=== PATIENT | female | born 1980 | race Caucasian/White ===

== ENCOUNTER 2016-11-20 21:30 | Emergency (ER) | payer MEDICAID ==
[~2016-11-20] VITALS: Ht 167.6 cm; Wt 138.2 kg
[~2016-11-20 21:30] MED LIST: IBUP-1222 PO; LIRA0.6P SQ; MELO-190 PO; METF500T4 PO; OXYC-302 PO
[2016-11-20] MEDS ORDERED: METF500T27 PO (23:02)
[2016-11-20 23:51] VITALS: BP 104/57
== END 2016-11-20 23:53 | disposition home or self-care (01) ==
LOC: ED 23:37
DX: N30.00 Acute cystitis without hematuria (principal)
CPT/HCPCS: 81001; 87077; 87086; 87186; 99284

== ENCOUNTER 2016-12-22 05:53 | Emergency (ER) | payer MEDICAID ==
[~2016-12-22] VITALS: Ht 167.6 cm; Wt 135.6 kg
[~2016-12-22 05:53] MED LIST changes: +METF500T27 PO
[2016-12-22] MEDS ORDERED: SODIUM CHLORIDE 0.9% 1,000 ML IV ONE (06:15)
[2016-12-22] MEDS ORDERED: MORPHINE SULFATE 4 MG/ML, 1ML ONE ×2 (06:23→07:59)
[2016-12-22] MEDS ORDERED: ONDANSETRON 2MG/ML, 2ML ONE (06:24)
[2016-12-22] MEDS ORDERED: ONDANSETRON 2MG/ML, 2ML IVPush ONE (06:30)
[2016-12-22] MEDS ORDERED: SODIUM CHLORIDE FLUSH 10ML SYR IVF ONE (06:30)
[2016-12-22] MEDS: MORPHINE SULFATE 4 MG/ML, 1ML IVPush PRN ×2 (06:41→08:11)
[2016-12-22 07:10] LABS: ASPARTATE AMINO TRANSFERASE 15 U/L (15-37); BLOOD UREA NITROGEN 18 mg/dL (7-18)
[2016-12-22 08:03] VITALS: BP 112/65
[2016-12-22] MEDS ORDERED: KETOROLAC 30 MG/1 ML ONE (08:48)
[2016-12-22] MEDS ORDERED: KETOROLAC 30 MG/1 ML IVPush ONE (09:00)
== END 2016-12-22 09:51 | disposition home or self-care (01) ==
LOC: ED 07:11
DX: N10 Acute pyelonephritis (principal)
CPT/HCPCS: 36415; 51701; 74176; 76700; 80053; 81001; 83690; 84703; 85025; 85610; 87077; 87086; 96361; 96374; 96375; 96376; 99285; J1885; J2405; J7030; 87186; P9612

== ENCOUNTER 2017-01-21 20:23 | Emergency (ER) | payer MEDICAID ==
[~2017-01-21] VITALS: Ht 167.6 cm; Wt 135.0 kg
[2017-01-21] MEDS ORDERED: IBUPROFEN 200 MG TABLET ONE (21:28)
[2017-01-21] MEDS ORDERED: IBUPROFEN 200 MG TABLET PO ONE (21:30)
[2017-01-21 22:39] VITALS: BP 139/78
== END 2017-01-21 22:41 | disposition home or self-care (01) ==
LOC: ED 22:13
DX: S90.01XA Contusion of right ankle, initial encounter (principal); S90.31XA Contusion of right foot, initial encounter; E11.9 Type 2 diabetes mellitus without complications; W19.XXXA Unspecified fall, initial encounter; Y93.89 Activity, other specified; Y92.009 Unspecified place in unspecified non-institutional (private) residence as the place of occurrence of the external cause; Y99.9 Unspecified external cause status
CPT/HCPCS: 99284

== ENCOUNTER 2018-06-06 21:03 | Emergency (ER) | payer MEDICAID ==
[~2018-06-06] VITALS: Ht 167.6 cm; Wt 107.1 kg
[~2018-06-06 21:03] MED LIST changes: -MELO-190 PO; +MELO7.5T31 PO; +METF500T17 PO; -METF500T4 PO
[2018-06-06 21:16] VITALS: BP 122/81
[2018-06-06 22:43] LABS: HCG UR SG 1.026 (1.003-1.030); MICROSCOPIC AUTO
[2018-06-06 23:01] LABS: CULTURE INDICATED? NO
[2018-06-06 23:13] LABS: CLUE CELLS NONE SEEN (NONE SEEN); WET PREP WBCS MODERATE (FEW)
[2018-06-06] MEDS ORDERED: AZITHROMYCIN 250 MG TABLET PO ONE (23:30)
[2018-06-06] MEDS ORDERED: CEFTRIAXONE 250 MG IM ONE (23:30)
[2018-06-07] MEDS ORDERED: AZITHROMYCIN 250 MG TABLET ONE (00:09)
[2018-06-07] MEDS ORDERED: CEFTRIAXONE 250 MG ONE (00:09)
== END 2018-06-07 00:28 | disposition home or self-care (01) ==
LOC: ED 21:28
DX: B34.9 Viral infection, unspecified (principal); H10.023 Other mucopurulent conjunctivitis, bilateral; H10.33 Unspecified acute conjunctivitis, bilateral; B96.89 Other specified bacterial agents as the cause of diseases classified elsewhere; A56.02 Chlamydial vulvovaginitis; A54.02 Gonococcal vulvovaginitis, unspecified; E11.9 Type 2 diabetes mellitus without complications
CPT/HCPCS: 81001; 81025; 87210; 87491; 87591; 87808; 96372; 99284; J0696

== ENCOUNTER 2018-07-29 18:26 | Emergency (ER) | payer MEDICAID ==
[~2018-07-29] VITALS: Ht 167.6 cm; Wt 106.7 kg
--- NOTE | 2018-07-29 19:03 | NUR ---
pt arrives to ed with lower abd pain and epigastric pain after eating. Pt reports she is possibly . she does not get regular periods so she is not sure how many weeks she is. Pt also reports she has some vaginal dc at this time. looks like blood but is also white on occasion. Pt placed on director of community life bed and director of community life cart outside room. Awaiting further orders. call light in reach.
[2018-07-29 19:11] LABS: MICROSCOPIC NOT IND
[2018-07-29 19:44] LABS: ALBUMIN 3.6 g/dL (3.4-5.0); ANION GAP 6 mmol/L (5-15); CALCIUM 8.8 mg/dL (8.5-10.1); CHLORIDE 106 mmol/L (98-107); CREATININE 0.75 mg/dL (0.55-1.02)
[2018-07-29 19:55] VITALS: BP 124/84
[2018-07-29 20:00] LABS: BASOPHILS # (AUTO) 0.04 x10^3/uL (0-0.1); BASOPHILS % (AUTO) 0 % (0-1); EOSINOPHILS # (AUTO) 0.09 x10^3/uL (0-0.4); EOSINOPHILS % (AUTO) 1 % (1-7); LYMPHOCYTES # (AUTO) 2.51 x10^3/uL (1-3.4); LYMPHOCYTES % (AUTO) 26 % (22-44); MD NO; MEAN CORPUSCULAR HEMOGLOBIN 27.3 pg (27.0-34.8); MEAN CORPUSCULAR HGB CONC 32.7 g/dL (32.4-35.8); MEAN CORPUSCULAR VOLUME 83.5 fL (80-100); MEAN PLATELET VOLUME 9.3 fL (7.4-10.4); MONOCYTES # (AUTO) 0.58 x10^3/uL (0.2-0.8); MONOCYTES % (AUTO) 6 % (2-9); NEUTROPHILS # (AUTO) 6.59 x10^3/uL (1.8-6.8); NEUTROPHILS % (AUTO) 67 % (42-75); PLATELET COUNT 268 x10^3/uL (130-400); RED CELL DISTRIBUTION WIDTH 15.2 % (9.6-15.2)
[2018-07-29 20:07] LABS: CULTURE INDICATED? NO
--- NOTE | 2018-07-29 20:10 | NUR ---
PT TO US
--- NOTE | 2018-07-29 20:45 | NUR ---
ALEXIS ANTOINE PERFORMING SUPERVISOR COLD ROLLING EXAM
[2018-07-29 21:08] LABS: CLUE CELLS NONE SEEN (NONE SEEN); WET PREP WBCS FEW (FEW)
--- NOTE | 2018-07-29 21:10 | NUR ---
Patient/Caregiver given discharge instructions and they have confirmed that they understand the instructions. Patient ambulatory with steady gait.
[2018-07-29] MEDS ORDERED: FLUCONAZOLE 100 MG TABLET ONE (21:27)
[2018-07-29] MEDS ORDERED: FLUCONAZOLE 100 MG TABLET PO ONE (21:30)
== END 2018-07-29 21:37 | disposition home or self-care (01) ==
LOC: ED 20:10
DX: O26.891 Other specified pregnancy related conditions, first trimester (principal); R10.30 Lower abdominal pain, unspecified; O24.911 Unspecified diabetes mellitus in pregnancy, first trimester; Z3A.01 Less than 8 weeks gestation of pregnancy
CPT/HCPCS: 36415; 76801; 80048; 81003; 82040; 84702; 85025; 87210; 87491; 87591; 87808; 99284

== ENCOUNTER 2018-11-22 18:20 | Outpatient (CLI) | payer MEDICAID ==
[~2018-11-22] VITALS: Ht 167.6 cm; Wt 115.9 kg
[2018-11-22 19:40] LABS: AMPHETAMINE SCREEN, URINE Negative (Negative); BARBITURATE SCREEN, URINE Negative (Negative); BENZODIAZEPINE SCREEN, URINE Negative (Negative); CANNABINOID SCREEN, URINE Negative (Negative); COCAINE SCREEN, URINE Negative (Negative); METHADONE SCREEN, URINE Negative (Negative); OPIATE SCREEN, URINE Negative (Negative)
[2018-11-22 19:55] LABS: BASOPHILS # (AUTO) 0.03 x10^3/uL (0-0.1); BASOPHILS % (AUTO) 0 % (0-1); EOSINOPHILS # (AUTO) 0.04 x10^3/uL (0-0.4); EOSINOPHILS % (AUTO) 0 % (1-7); LYMPHOCYTES # (AUTO) 1.76 x10^3/uL (1-3.4); LYMPHOCYTES % (AUTO) 18 % (22-44); MD NO; MEAN CORPUSCULAR HEMOGLOBIN 28.2 pg (27.0-34.8); MEAN CORPUSCULAR VOLUME 83.1 fL (80-100); MEAN PLATELET VOLUME 8.9 fL (7.4-10.4); MONOCYTES # (AUTO) 0.56 x10^3/uL (0.2-0.8); MONOCYTES % (AUTO) 6 % (2-9); NEUTROPHILS % (AUTO) 75 % (42-75); PLATELET COUNT 255 x10^3/uL (130-400); RED BLOOD COUNT 3.93 x10^6/uL (3.82-5.3); RED CELL DISTRIBUTION WIDTH 13.2 % (9.6-15.2)
[2018-11-22 20:04] LABS: MICROSCOPIC INDICATED
[2018-11-22 20:13] LABS: CULTURE INDICATED? YES
== END 2018-11-22 21:51 | disposition home or self-care (01) ==
LOC: LDOP 18:20
PROVIDERS: ATTEND Obstetrics & Gynecology
DX: O26.892 Other specified pregnancy related conditions, second trimester (principal); R52 Pain, unspecified; W19.XXXA Unspecified fall, initial encounter; Y93.89 Activity, other specified; Y92.89 Other specified places as the place of occurrence of the external cause; Y99.8 Other external cause status; Z3A.22 22 weeks gestation of pregnancy
CPT/HCPCS: 36415; 59025; 76815; 80307; 81001; 82962; 85025; 85460; 87086; 99211; G0463

== ENCOUNTER 2018-12-28 14:47 | Outpatient (CLI) | payer MEDICAID ==
[~2018-12-28] VITALS: Ht 167.6 cm; Wt 120.0 kg
[2018-12-28 15:20] LABS: MICROSCOPIC NOT IND
[2018-12-28] MEDS ORDERED: LACTATED RINGERS 1,000 ML IVBOLUS ONE (16:00)
[2018-12-28] MEDS ORDERED: LOPERAMIDE 1 MG/5 ML, 10ML UDC PO PRN ×2 (16:00→16:05)
[2018-12-28 16:27] LABS: ALANINE AMINOTRANSFERASE 16 U/L (12-78); ALBUMIN 2.6 g/dL (3.4-5.0); ANION GAP 7 mmol/L (5-15); CALCIUM 9.2 mg/dL (8.5-10.1); CHLORIDE 108 mmol/L (98-107); CREATININE 0.71 mg/dL (0.55-1.02)
[2018-12-28 16:30] LABS: ALKALINE PHOSPHATASE 82 U/L (45-117); BILIRUBIN,TOTAL 0.1 mg/dL (0.2-1.0)
== END 2018-12-28 17:53 | disposition home or self-care (01) ==
LOC: LDOP 14:47
PROVIDERS: ATTEND Obstetrics & Gynecology
DX: O26.892 Other specified pregnancy related conditions, second trimester (principal); R10.9 Unspecified abdominal pain; R42 Dizziness and giddiness; O21.2 Late vomiting of pregnancy; R19.7 Diarrhea, unspecified; O09.522 Supervision of elderly multigravida, second trimester; O24.912 Unspecified diabetes mellitus in pregnancy, second trimester; Z79.4 Long term (current) use of insulin; Z79.84 Long term (current) use of oral hypoglycemic drugs; Z3A.26 26 weeks gestation of pregnancy
CPT/HCPCS: 36415; 80053; 81003; 82962; 87086; 96360; J7120; 99211; G0463

== ENCOUNTER 2019-01-11 17:31 | Outpatient (CLI) | payer MEDICAID ==
[~2019-01-11] VITALS: Ht 167.6 cm; Wt 120.0 kg
[2019-01-11 17:55] VITALS: BP 116/62
[2019-01-11] MEDS ORDERED: PLEASE ENTER HEIGHT AND WEIGHT MC SCH (18:30)
[2019-01-11] MEDS ORDERED: ACETAMINOPHEN 500 MG TABLET PO ONE (18:30)
[2019-01-11 18:33] LABS: MICROSCOPIC NOT IND
[2019-01-11 18:34] LABS: BASOPHILS # (AUTO) 0.04 x10^3/uL (0-0.1); BASOPHILS % (AUTO) 1 % (0-1); EOSINOPHILS # (AUTO) 0.02 x10^3/uL (0-0.4); EOSINOPHILS % (AUTO) 0 % (1-7); LYMPHOCYTES # (AUTO) 1.71 x10^3/uL (1-3.4); LYMPHOCYTES % (AUTO) 20 % (22-44); MD NO; MEAN CORPUSCULAR HEMOGLOBIN 27.9 pg (27.0-34.8); MEAN CORPUSCULAR HGB CONC 32.8 g/dL (32.4-35.8); MEAN CORPUSCULAR VOLUME 84.9 fL (80-100); MEAN PLATELET VOLUME 8.6 fL (7.4-10.4); MONOCYTES # (AUTO) 0.49 x10^3/uL (0.2-0.8); MONOCYTES % (AUTO) 6 % (2-9); NEUTROPHILS # (AUTO) 6.54 x10^3/uL (1.8-6.8); NEUTROPHILS % (AUTO) 74 % (42-75); PLATELET COUNT 252 x10^3/uL (130-400); RED BLOOD COUNT 3.68 x10^6/uL (3.82-5.3); RED CELL DISTRIBUTION WIDTH 14.5 % (9.6-15.2)
[2019-01-11 18:44] LABS: ALANINE AMINOTRANSFERASE 13 U/L (12-78); ALBUMIN 2.5 g/dL (3.4-5.0); ANION GAP 8 mmol/L (5-15); CALCIUM 9.2 mg/dL (8.5-10.1); CHLORIDE 107 mmol/L (98-107); CREATININE 0.64 mg/dL (0.55-1.02)
[2019-01-11 18:45] LABS: BILIRUBIN, DIRECT < 0.1 mg/dL (0.1-0.2)
[2019-01-11 18:46] LABS: ALKALINE PHOSPHATASE 86 U/L (45-117); BILIRUBIN,TOTAL 0.1 mg/dL (0.2-1.0); TOTAL PROTEIN 7.1 g/dL (6.4-8.2)
== END 2019-01-11 20:14 | disposition home or self-care (01) ==
LOC: LDOP 17:31
PROVIDERS: ATTEND Obstetrics & Gynecology
DX: O26.893 Other specified pregnancy related conditions, third trimester (principal); R51 Headache
CPT/HCPCS: 36415; 59025; 80053; 81003; 82248; 82570; 84156; 84550; 85025; 99211; G0463

== ENCOUNTER 2019-01-29 19:00 | Outpatient (CLI) | payer MEDICAID ==
[~2019-01-29] VITALS: Ht 167.6 cm; Wt 117.7 kg
== END 2019-01-29 21:25 | disposition home or self-care (01) ==
LOC: LDOP 19:00
PROVIDERS: ATTEND Obstetrics & Gynecology
DX: O09.523 Supervision of elderly multigravida, third trimester (principal); O24.113 Pre-existing type 2 diabetes mellitus, in pregnancy, third trimester; Z3A.32 32 weeks gestation of pregnancy; Z79.84 Long term (current) use of oral hypoglycemic drugs
CPT/HCPCS: 59025; 99211; G0463

== ENCOUNTER 2019-02-02 09:40 | Outpatient (CLI) | payer MEDICAID ==
[2019-02-02 10:13] LABS: MICROSCOPIC NOT IND
[2019-02-02 10:45] LABS: BASOPHILS # (AUTO) 0.04 x10^3/uL (0-0.1); BASOPHILS % (AUTO) 1 % (0-1); EOSINOPHILS # (AUTO) 0.04 x10^3/uL (0-0.4); EOSINOPHILS % (AUTO) 1 % (1-7); LYMPHOCYTES # (AUTO) 1.26 x10^3/uL (1-3.4); LYMPHOCYTES % (AUTO) 15 % (22-44); MD NO; MEAN CORPUSCULAR HEMOGLOBIN 27.6 pg (27.0-34.8); MEAN CORPUSCULAR HGB CONC 32.5 g/dL (32.4-35.8); MEAN CORPUSCULAR VOLUME 84.8 fL (80-100); MEAN PLATELET VOLUME 9.1 fL (7.4-10.4); MONOCYTES # (AUTO) 0.42 x10^3/uL (0.2-0.8); MONOCYTES % (AUTO) 5 % (2-9); NEUTROPHILS # (AUTO) 6.64 x10^3/uL (1.8-6.8); NEUTROPHILS % (AUTO) 79 % (42-75); PLATELET COUNT 230 x10^3/uL (130-400); RED BLOOD COUNT 3.63 x10^6/uL (3.82-5.3); RED CELL DISTRIBUTION WIDTH 14.6 % (9.6-15.2)
[2019-02-02 10:54] LABS: ALANINE AMINOTRANSFERASE 15 U/L (12-78); ALBUMIN 2.5 g/dL (3.4-5.0); ANION GAP 9 mmol/L (5-15); CALCIUM 8.5 mg/dL (8.5-10.1); CHLORIDE 107 mmol/L (98-107); CREATININE 0.65 mg/dL (0.55-1.02)
[2019-02-02 10:55] LABS: BILIRUBIN, DIRECT < 0.1 mg/dL (0.1-0.2)
[2019-02-02 10:57] LABS: ALKALINE PHOSPHATASE 108 U/L (45-117); BILIRUBIN,TOTAL 0.2 mg/dL (0.2-1.0); TOTAL PROTEIN 6.7 g/dL (6.4-8.2)
[2019-02-02] MEDS ORDERED: ONDANSETRON 4 MG TABLET ONE (11:19)
[2019-02-02] MEDS ORDERED: BUTALB/APAP/CAFFEINE 50MG/325MG/40MG PO PRN (11:30)
[2019-02-02] MEDS ORDERED: ONDANSETRON 4 MG TABLET PO ONE (11:30)
== END 2019-02-02 12:00 | disposition home or self-care (01) ==
LOC: LDOP 09:40
PROVIDERS: ATTEND Obstetrics & Gynecology
DX: O09.523 Supervision of elderly multigravida, third trimester (principal); O99.353 Diseases of the nervous system complicating pregnancy, third trimester; Z3A.33 33 weeks gestation of pregnancy; R51 Headache; Z88.1 Allergy status to other antibiotic agents
CPT/HCPCS: 36415; 59025; 80053; 81003; 82248; 82570; 82962; 84156; 84550; 85025; 99201; G0463

== ENCOUNTER 2019-02-06 19:31 | Outpatient (CLI) | payer MEDICAID ==
[~2019-02-06] VITALS: Ht 167.6 cm; Wt 119.0 kg
[2019-02-06 20:00] VITALS: BP 121/68
== END 2019-02-06 20:30 | disposition home or self-care (01) ==
LOC: LDOP 19:31
PROVIDERS: ATTEND Obstetrics & Gynecology
DX: O09.893 Supervision of other high risk pregnancies, third trimester (principal); O62.9 Abnormality of forces of labor, unspecified; O24.113 Pre-existing type 2 diabetes mellitus, in pregnancy, third trimester; E11.8 Type 2 diabetes mellitus with unspecified complications; Z79.4 Long term (current) use of insulin; Z3A.34 34 weeks gestation of pregnancy; Z88.0 Allergy status to penicillin
CPT/HCPCS: 59025; 99211; G0463

== ENCOUNTER 2019-02-09 22:14 | Observation (INO) | payer MEDICAID ==
[~2019-02-09] VITALS: Ht 167.6 cm; Wt 122.0 kg
[2019-02-09 22:37] LABS: MICROSCOPIC NOT IND
[2019-02-09 23:00] VITALS: BP 127/76
[2019-02-09] MEDS: LACTATED RINGERS 1,000 ML IV SCH (23:12)
[2019-02-10] MEDS ORDERED: FENTANYL PF 100 MCG/2ML ONE (00:27)
[2019-02-10] MEDS ORDERED: FENTANYL PF 100 MCG/2ML IVPush PRN (00:30)
[2019-02-10] MEDS ORDERED: HYDROcodone/APAP 10/325 MG TABLET PO ONE (00:30)
[2019-02-10] MEDS: LACTATED RINGERS 1,000 ML IV SCH (00:30)
== END 2019-02-10 06:32 | disposition home or self-care (01) ==
LOC: LDOP 22:14 → LDIP 02-10 00:10
PROVIDERS: ADMIT Obstetrics & Gynecology; ATTEND Obstetrics & Gynecology
DX: O47.03 False labor before 37 completed weeks of gestation, third trimester (principal); O62.9 Abnormality of forces of labor, unspecified; Z3A.37 37 weeks gestation of pregnancy
CPT/HCPCS: 59025; 81003; 96374; 99211; G0378; J3010; J7120; 96360; 96361; G0463

== ENCOUNTER 2019-02-12 15:32 | Outpatient (CLI) | payer MEDICAID ==
[~2019-02-12] VITALS: Ht 167.6 cm; Wt 120.0 kg
[2019-02-12 15:41] VITALS: BP 115/71
== END 2019-02-12 16:20 | disposition home or self-care (01) ==
LOC: LDOP 15:32
PROVIDERS: ATTEND Obstetrics & Gynecology
DX: O09.513 Supervision of elderly primigravida, third trimester (principal); Z3A.35 35 weeks gestation of pregnancy
CPT/HCPCS: 59025; 99211; G0463

== ENCOUNTER 2019-02-23 12:23 | Outpatient (CLI) | payer MEDICAID | END 2019-02-23 15:05 | disposition home or self-care (01) | LOC: LDOP 12:23 | PROVIDERS: ATTEND Obstetrics & Gynecology | DX: O9A.213 Injury, poisoning and certain other consequences of external causes complicating pregnancy, third trimester (principal); R52 Pain, unspecified; Z3A.36 36 weeks gestation of pregnancy | CPT/HCPCS: 36415; 59025; 76815; 85460; 99211; G0463 ==

== ENCOUNTER 2019-02-25 20:24 | Outpatient (CLI) | payer MEDICAID ==
[~2019-02-25] VITALS: Ht 167.6 cm; Wt 122.7 kg
[2019-02-25 20:54] VITALS: BP 135/85
[2019-02-25 21:34] LABS: MICROSCOPIC NOT IND
[2019-02-25] MEDS ORDERED: ZOLPIDEM 5MG TABLET ONE (22:10)
[2019-02-25] MEDS ORDERED: ZOLPIDEM 5MG TABLET PO SCH (22:30)
== END 2019-02-25 22:20 | disposition home or self-care (01) ==
LOC: LDOP 20:24
PROVIDERS: ATTEND Obstetrics & Gynecology
DX: O62.9 Abnormality of forces of labor, unspecified (principal); O09.513 Supervision of elderly primigravida, third trimester; Z3A.35 35 weeks gestation of pregnancy
CPT/HCPCS: 59025; 81003; 87086; 99211; G0463

== ENCOUNTER 2019-02-27 12:41 | Observation (INO) | payer MEDICAID ==
[~2019-02-27] VITALS: Ht 167.6 cm; Wt 123.6 kg
[2019-02-27 12:51] VITALS: BP 119/70
[2019-02-27] MEDS ORDERED: MEPERIDINE/PF 50 MG/ML ONE (13:15)
[2019-02-27] MEDS ORDERED: PROMETHAZINE 25 MG/ML, 1ML IM ONE (13:30)
[2019-02-27] MEDS ORDERED: MEPERIDINE/PF 50 MG/ML IM PRN (13:30)
== END 2019-02-27 19:05 | disposition home or self-care (01) ==
LOC: LDOP 12:41 → LDIP 16:32
PROVIDERS: ADMIT Obstetrics & Gynecology; ATTEND Obstetrics & Gynecology
DX: O62.9 Abnormality of forces of labor, unspecified (principal); Z3A.36 36 weeks gestation of pregnancy; O24.415 Gestational diabetes mellitus in pregnancy, controlled by oral hypoglycemic drugs; Z79.84 Long term (current) use of oral hypoglycemic drugs
CPT/HCPCS: 59025; 76819; 96372; 99211; G0378; J2175; J2550; G0463

== ENCOUNTER 2019-03-03 13:39 | Inpatient (IN) | payer MEDICAID ==
[~2019-03-03] VITALS: Ht 167.6 cm; Wt 123.6 kg
[2019-03-03 13:54] VITALS: BP 122/77
[2019-03-03] MEDS ORDERED: LACTATED RINGERS 1,000 ML IV SCH (14:45)
[2019-03-03] MEDS ORDERED: SODIUM CITRATE/CITRIC ACID 15 ML UDC PO ONE (15:00)
[2019-03-03] MEDS ORDERED: LACTATED RINGERS 1,000 ML IVBOLUS ONE ×2 (15:00)
[2019-03-03] MEDS ORDERED: ONDANSETRON 2MG/ML, 2ML IVPush ONE ×2 (15:00)
[2019-03-03] MEDS ORDERED: METOCLOPRAMIDE 5 MG/ML, 2ML IV ONE (15:00)
[2019-03-03] MEDS ORDERED: CEFAZOLIN PMX 1GM/50ML 50 ML IVPB ONE (15:00)
[2019-03-03] MEDS ORDERED: SODIUM CITRATE/CITRIC ACID 15 ML UDC ONE (15:11)
[2019-03-03] MEDS ORDERED: METOCLOPRAMIDE 5 MG/ML, 2ML ONE (15:11)
[2019-03-03] MEDS ORDERED: NEWBORN KIT ONE (15:11)
[2019-03-03] MEDS ORDERED: OXYTOCIN 30U/ 0.9% NaCL 500ML 500 ML ONE (15:12)
[2019-03-03] MEDS ORDERED: MISOPROSTOL 200 MCG TABLET ONE (15:12)
[2019-03-03 15:18] LABS: BASOPHILS # (AUTO) 0.02 x10^3/uL (0-0.1); BASOPHILS % (AUTO) 0 % (0-1); EOSINOPHILS # (AUTO) 0.03 x10^3/uL (0-0.4); EOSINOPHILS % (AUTO) 0 % (1-7); LYMPHOCYTES # (AUTO) 1.62 x10^3/uL (1-3.4); LYMPHOCYTES % (AUTO) 17 % (22-44); MD NO; MEAN CORPUSCULAR HEMOGLOBIN 26.5 pg (27.0-34.8); MEAN CORPUSCULAR HGB CONC 31.8 g/dL (32.4-35.8); MEAN CORPUSCULAR VOLUME 83.1 fL (80-100); MEAN PLATELET VOLUME 8.9 fL (7.4-10.4); MONOCYTES % (AUTO) 6 % (2-9); NEUTROPHILS # (AUTO) 7.22 x10^3/uL (1.8-6.8); NEUTROPHILS % (AUTO) 76 % (42-75); PLATELET COUNT 241 x10^3/uL (130-400); RED BLOOD COUNT 4.08 x10^6/uL (3.82-5.3); RED CELL DISTRIBUTION WIDTH 15.1 % (9.6-15.2)
[2019-03-03] MEDS ORDERED: EPHEDRINE 50 MG/ML, 1ML IVPush PRN (16:00)
[2019-03-03] MEDS ORDERED: ONDANSETRON 2MG/ML, 2ML IVPush PRN (16:00)
[2019-03-03] MEDS ORDERED: PROMETHAZINE 25 MG/ML, 1ML IV PRN (16:00)
[2019-03-03] MEDS ORDERED: LABETALOL 5MG/ML, 20ML IV PRN (16:00)
[2019-03-03] MEDS ORDERED: hydrALAzine 20 MG/ML, 1ML IV PRN (16:00)
[2019-03-03] MEDS ORDERED: ALBUTEROL SULFATE 2.5 MG/3 ML NPPB PRN (16:00)
[2019-03-03] MEDS ORDERED: MEPERIDINE/PF 25MG/0.5ML IVPush PRN (16:00)
[2019-03-03] MEDS ORDERED: OXYcodone 5 MG/5 ML ORAL.SOL UDC PO PRN (16:00)
[2019-03-03] MEDS ORDERED: MIDAZOLAM 1 MG/ML, 2ML IV PRN (16:00)
[2019-03-03] MEDS ORDERED: HYDROcodone/APAP 7.5-325MG/15ML UDC PO PRN (16:00)
[2019-03-03] MEDS ORDERED: HYDROmorphone 2 MG/ML, 1ML IVPush PRN (16:00)
[2019-03-03] MEDS ORDERED: FENTANYL PF 100 MCG/2ML IV PRN (16:00)
[2019-03-03] MEDS ORDERED: EPHEDRINE 50 MG/ML, 1ML ONE (16:12)
[2019-03-03] MEDS ORDERED: PHENYLEPHRINE 10 MG/ML ONE (16:12)
[2019-03-03] MEDS ORDERED: KETOROLAC 30 MG/1 ML ONE (16:12)
[2019-03-03] MEDS ORDERED: CEFAZOLIN 1,000 MG ONE (16:12)
[2019-03-03] MEDS ORDERED: OXYTOCIN 10 UNITS/ML, 1ML ONE (16:12)
[2019-03-03] MEDS ORDERED: ONDANSETRON 2MG/ML, 2ML ONE (16:12)
[2019-03-03] MEDS ORDERED: DEXAMETHASONE 4 MG/ML, 1ML ONE (16:12)
[2019-03-03] MEDS ORDERED: FENTANYL PF 100 MCG/2ML ONE (16:13)
[2019-03-03] MEDS ORDERED: HYDROmorphone 2 MG/ML, 1ML ONE (17:14)
[2019-03-03] MEDS ORDERED: OXYcodone IR 5MG TABLET PO PRN (18:00)
[2019-03-03] MEDS ORDERED: ONDANSETRON 2MG/ML, 2ML IV PRN (18:00)
[2019-03-03] MEDS ORDERED: MISOPROSTOL 200 MCG TABLET PR PRN (18:00)
[2019-03-03] MEDS ORDERED: CARBOPROST TROMETHAMINE 250 MCG/ML, 1ML IM PRN (18:00)
[2019-03-03] MEDS ORDERED: morphine SULFATE 10 MG/ML, 1ML IVPush PRN (18:00)
[2019-03-03] MEDS ORDERED: METHYLERGONOVINE 0.2 MG/ML IM PRN (18:00)
[2019-03-03] MEDS: LACTATED RINGERS 1,000 ML IV SCH (18:07)
[2019-03-03] MEDS: OXYTOCIN 30U/ 0.9% NaCL 500ML 500 ML IV SCH (19:43)
[2019-03-03] MEDS ORDERED: HYDROcodone/APAP 7.5-325MG/15ML UDC ONE (19:58)
[2019-03-03 20:15] VITALS: BP 115/76
[2019-03-03 22:00] VITALS: BP 131/81
[2019-03-03] MEDS: KETOROLAC 30 MG/1 ML IV SCH (23:21)
[2019-03-04 00:05] VITALS: BP 110/71
[2019-03-04 01:07] LABS: BASOPHILS # (AUTO) 0.03 x10^3/uL (0-0.1); BASOPHILS % (AUTO) 0 % (0-1); EOSINOPHILS # (AUTO) 0.13 x10^3/uL (0-0.4); EOSINOPHILS % (AUTO) 1 % (1-7); LYMPHOCYTES # (AUTO) 1.41 x10^3/uL (1-3.4); LYMPHOCYTES % (AUTO) 12 % (22-44); MD NO; MEAN CORPUSCULAR HEMOGLOBIN 27.5 pg (27.0-34.8); MEAN CORPUSCULAR HGB CONC 32.9 g/dL (32.4-35.8); MEAN CORPUSCULAR VOLUME 83.6 fL (80-100); MEAN PLATELET VOLUME 8.9 fL (7.4-10.4); MONOCYTES # (AUTO) 0.37 x10^3/uL (0.2-0.8); MONOCYTES % (AUTO) 3 % (2-9); NEUTROPHILS # (AUTO) 9.54 x10^3/uL (1.8-6.8); NEUTROPHILS % (AUTO) 83 % (42-75); PLATELET COUNT 203 x10^3/uL (130-400); RED BLOOD COUNT 3.43 x10^6/uL (3.82-5.3); RED CELL DISTRIBUTION WIDTH 15.6 % (9.6-15.2)
[2019-03-04] MEDS: LACTATED RINGERS 1,000 ML IV SCH ×4 (01:47→09:47)
[2019-03-04] MEDS: MORPHINE SULFATE 4 MG/ML, 1ML IVPush PRN ×2 (03:29→15:56)
[2019-03-04] MEDS: OXYTOCIN 30U/ 0.9% NaCL 500ML 500 ML IV SCH (03:47)
[2019-03-04 03:51] VITALS: BP 122/76
[2019-03-04] MEDS: KETOROLAC 30 MG/1 ML IV SCH ×4 (05:18→20:34)
[2019-03-04] MEDS ORDERED: DOCUSATE 100 MG CAPSULE ONE (07:36)
[2019-03-04] MEDS: metFORMIN 500 MG TABLET PO SCH ×3 (07:47→17:50)
[2019-03-04] MEDS: PRENATAL VIT/IRON/FA 1 EACH TABLET PO SCH (07:47)
[2019-03-04 08:00] VITALS: BP 109/67
[2019-03-04] MEDS: OXYcodone IR 5MG TABLET PO PRN ×2 (09:11→13:04)
[2019-03-04] MEDS: DOCUSATE 100 MG CAPSULE PO SCH ×2 (09:11→20:34)
[2019-03-04 12:45] VITALS: BP 103/65
[2019-03-04 20:30] VITALS: BP 119/77
[2019-03-04] MEDS ORDERED: MORPHINE SULFATE 4 MG/ML, 1ML IVPush PRN (21:00)
[2019-03-04] MEDS ORDERED: ACETAMINOPHEN 325 MG TABLET PO PRN (21:00)
[2019-03-04] MEDS ORDERED: SIMETHICONE 80 MG CHEW TAB ONE (21:03)
[2019-03-04] MEDS ORDERED: OXYcodone/APAP 5/325MG TABLET ONE (21:03)
[2019-03-04] MEDS: OXYcodone/APAP 5/325MG TABLET PO PRN (21:08)
[2019-03-04] MEDS: SIMETHICONE 80 MG CHEW TAB PO PRN (21:11)
[2019-03-05] MEDS: KETOROLAC 30 MG/1 ML IV SCH ×2 (02:39→07:38)
[2019-03-05] MEDS: OXYcodone/APAP 5/325MG TABLET PO PRN ×3 (02:39→13:44)
[2019-03-05] MEDS: SIMETHICONE 80 MG CHEW TAB PO PRN (03:10)
[2019-03-05 07:35] VITALS: BP 106/71
[2019-03-05] MEDS: DOCUSATE 100 MG CAPSULE PO SCH (07:37)
[2019-03-05] MEDS: metFORMIN 500 MG TABLET PO SCH (07:38)
[2019-03-05] MEDS: PRENATAL VIT/IRON/FA 1 EACH TABLET PO SCH (07:38)
[2019-03-05] MEDS ORDERED: IBUP-1222 PO (11:12)
[2019-03-05] MEDS ORDERED: OXYC-302 PO (11:13)
== END 2019-03-05 13:58 | disposition home or self-care (01) | DRG 786 ==
LOC: LDOP 13:39 → LDIP 14:54 → 2NW 20:12
PROVIDERS: ADMIT Obstetrics & Gynecology; ATTEND Obstetrics & Gynecology
PROC: 10D00Z1 Extraction of Products of Conception, Low, Open Approach (ICD-10-PCS; principal; 2019-03-03)
DX: O34.211 Maternal care for low transverse scar from previous cesarean delivery (principal); O24.12 Pre-existing type 2 diabetes mellitus, in childbirth; Z37.0 Single live birth; Z3A.36 36 weeks gestation of pregnancy; K66.0 Peritoneal adhesions (postprocedural) (postinfection); Z88.0 Allergy status to penicillin; Z91.018 Allergy to other foods; E11.9 Type 2 diabetes mellitus without complications; O99.214 Obesity complicating childbirth; E66.01 Morbid (severe) obesity due to excess calories; Z91.19 Patient's noncompliance with other medical treatment and regimen; O99.62 Diseases of the digestive system complicating childbirth
CPT/HCPCS: 36415; 82962; 85025; 86850; 86900; 86923; G0378; J0690; J1100; J1170; J1885; J2405; J3010; J2270; J2370; J2590; J2765; J7120

== ENCOUNTER 2019-10-15 21:30 | Emergency (ER) | payer MEDICAID ==
[~2019-10-15] VITALS: Ht 165.1 cm; Wt 131.0 kg
[2019-10-15 22:54] VITALS: BP 126/81
--- NOTE | 2019-10-15 22:55 | NUR ---
PT TO ED WITH LEFT KNEE PAIN THAT SHE WOKE UP WITH THIS MORNING, DENIES TRAUMA. PT REPORT GOING TO PCP EARLIER TODAY AND PROVIDER TOLD IT WAS DUE TO EXCESS WEIGHT. PT DENIES ANY OTHER C/O AT THIS TIME. CONNECTED TO MONITORING, CALL LIGHT WITHIN REACH. FRIEND AT BS FOR SUPPORT.
== END 2019-10-15 23:41 | disposition home or self-care (01) ==
LOC: ED 23:35
DX: M79.622 Pain in left upper arm (principal); E11.9 Type 2 diabetes mellitus without complications; E66.9 Obesity, unspecified; Z68.42 Body mass index [BMI] 45.0-49.9, adult
CPT/HCPCS: 29505; 99283